=== PATIENT | male | born 1980 | race African-American/Black ===

== ENCOUNTER 2017-04-23 16:10 | Emergency (ER) | payer OTHER ==
[~2017-04-23] VITALS: Ht 175.3 cm; Wt 104.3 kg
--- NOTE | ~2017-04-23 | EKG ---
[place] [address] [address] [employer] [facility] [place] [address] ELECTROCARDIOGRAM REPORT Name: VANI SEVERINO [facility] Room #: [facility] M.R.#: [id number] Admission: Attend Phys: Discharge: Date of : 80 Report #: [id number] THIS REPORT FOR: //name// [facility] ED Test Date: 2017-04-23 Test Time: 17:14:57 Pat Name: VANI SEVERINO Department: Room: Gender: M Online Community Manager: JOVITA : 1980 Requested By: Eleni Olivia Order Number: [id number] MD: Jonathan Hernandez Measurements Intervals [place] Rate: 84 P: 21 NV: 157 QRS: -1 QRSD: 97 T: 61 QT: 372 QTc: 440 Interpretive Statements Sinus rhythm Nonspecific T wave abnormality Compared to ECG 01/17/2014 17:04:15 Left ventricular hypertrophy no longer present Electronically Signed On 04-23-2017 17:35:12 CHEMICAL ENGINEERING TECHNICIAN by Jonathan Hernandez [email or web address] <ELECTRONICALLY SIGNED> By: Jonathan Hernandez MD, [facility] 04/23/17 1735 1714 1714 Jonathan Hernandez MD, FAC /EPI
[~2017-04-23 16:10] MED LIST: AMOXICILLIN500 M1 PO; ANTIVERT25 MG PO; CHERACOL COUGH120 ML PO; CLONIDINE0.1 PO; DIPHENHIST50 MG PO; GARAMYCIN5 M1 OP; MEDROLDOSEPACK PO; NOHOMEMEDICATIONS; NORCO 5-325 TA1 EACH PO; OSELB75 PO; PROAIR HFA8.5 GM IH; VENTOLIN HFA 1818 GM INH
[2017-04-23] MEDS ORDERED: LIPITOR 20 MG T20 M1 PO (17:15)
[2017-04-23 17:40] LABS: ABSOLUTE NEUTROPHILS 6.7 thou/uL (1.4-8.2); BASOPHILS 0.9 % (0.0-2.0); EOSINOPHILS 2.1 % (0.0-3.0); HEMOGLOBIN 14.8 gm/dL (14.0-18.0); LYMPHOCYTES 31.8 % (24.0-44.0); MCH 24.7 pg (26.0-34.0); MCHC 32.2 g/dL (28.0-37.0); MCV 76.8 fL (80.0-100.0); MONOCYTES 8.4 % (1.0-8.0); PLATELET COUNT 301 thou/uL (150-400); POLYS 56.8 % (36.0-66.0); RDW 14.1 % (10.5-14.5); WBC 11.7 thou/uL (4.0-11.0)
[2017-04-23 17:48] LABS: ANION GAP 9 mmol/L (7-16); BUN 13 mg/dL (7-18); CALCIUM 9.6 mg/dL (8.5-10.1); CHLORIDE 102 mmol/L (98-107); CO2 29 mmol/L (21-32); GLUCOSE 104 mg/dL (74-106); POTASSIUM 3.9 mmol/L (3.5-5.1); SODIUM 140 mmol/L (136-145)
[2017-04-23 17:54] LABS: URINE BILIRUBIN NEGATIVE (Negative); URINE BLOOD NEGATIVE (Negative); URINE CLARITY CLEAR; URINE COLOR YELLOW; URINE GLUCOSE-RANDOM* NEGATIVE (Negative); URINE KETONES NEGATIVE (Negative); URINE LEUKOCYTES NEGATIVE (Negative); URINE NITRITE NEGATIVE (Negative); URINE PROTEIN (DIPSTICK) 2+ (Negative); URINE SPECIFIC GRAVITY 1.025 (1.005-1.035)
[2017-04-23 17:56] LABS: ALBUMIN 3.9 g/dL (3.4-5.0); SGOT 28 U/L (15-37); SGPT 89 U/L (30-65); TOTAL BILIRUBIN 0.4 mg/dL (<0.1-1.0); TOTAL PROTEIN 8.3 g/dL (6.4-8.2); TROPONIN-I < 0.04 ng/mL (<0.06)
[2017-04-23 18:08] LABS: CASTS None Seen /LPF (None Seen); MUCUS 0-3 Light strn/LPF (None Seen); SQUAMOUS 0-3 Few /LPF (0-3); URINE WBC 0-5 Rare /HPF (0-5)
[2017-04-23 18:09] LABS: BACTERIA 1-9 Few /HPF (None Seen); CRYSTALS None Seen /LPF (None Seen); URINE RBC None Seen /HPF (0-2)
[2017-04-23] MEDS ORDERED: ANTIVERT25 MG PO (18:22)
== END 2017-04-23 18:53 | disposition home or self-care (01) ==
LOC: ER 16:10
PROVIDERS: Nurse Practitioner Family
DX: R42 Dizziness and giddiness (principal); J45.909 Unspecified asthma, uncomplicated; I10 Essential (primary) hypertension